=== PATIENT | male | born 1965 | race Caucasian/White ===

== ENCOUNTER 2018-11-21 04:13 | Observation (INO) | payer OTHER ==
[2018-11-21 04:44] LABS: ADD MAN DIFF? NO
[2018-11-21 04:45] LABS: WHITE BLOOD COUNT 5.4 10^3/ul (4.8-10.8)
[2018-11-21 04:45] LABS: BASOPHILS % 0.4 % (0.0-2.0); EOSINOPHILS # 0.1 10^3/ul (0.0-0.5); HEMATOCRIT 42.3 % (42.0-52.0); HEMOGLOBIN 14.2 g/dl (14.0-18.0); LYMPHOCYTES # 2.3 10^3/ul (0.8-2.9); LYMPHOCYTES % 43.2 % (15.0-51.0); MEAN CORPUSCULAR HEMOGLOBIN 29.2 pg (29.0-33.0); MEAN CORPUSCULAR HGB CONC 33.6 g/dl (32.0-37.0); MEAN CORPUSCULAR VOLUME 86.9 fl (82.0-101.0); MEAN PLATELET VOLUME 9.7 fl (7.4-10.4); MONOCYTE # 0.5 10^3/ul (0.3-0.9); MONOCYTES % 8.3 % (0.0-11.0); NEUTROPHIL # 2.5 10^3/ul (1.6-7.5); NEUTROPHILS % 45.7 % (39.0-77.0); PLATELET COUNT 181 10^3/UL (140-415); RED BLOOD COUNT 4.87 10^6/ul (4.70-6.10); RED CELL DISTRIBUTION WIDTH 12.6 % (11.5-14.5)
[2018-11-21 05:02] LABS: ANION GAP 7 (5-13); BLOOD UREA NITROGEN 10 mg/dl (7-20); CALCIUM 9.5 mg/dl (8.4-10.2); CARBON DIOXIDE 28 mmol/L (21-31); CHLORIDE 103 mmol/L (97-110); CREATININE 0.91 mg/dl (0.61-1.24); Estimated GFR > 60 mL/min (>60); GLUCOSE 123 mg/dl (70-220); POTASSIUM 3.9 mmol/L (3.5-5.1); SODIUM 138 mmol/L (135-144)
[2018-11-21 05:13] LABS: TROPONIN-I < 0.012 ng/ml (0.000-0.120)
[2018-11-21] MEDS ORDERED: NACL 0.9% 3 ML SYG IV (06:30)
[2018-11-21] MEDS ORDERED: ACETAMINOPHEN 325 MG TAB PO (06:30)
[2018-11-21] MEDS ORDERED: ONDANSETRON 4 MG INJ IV (06:30)
[2018-11-21] MEDS ORDERED: NITROGLYCERIN (SL) 0.4 MG TAB SL (06:30)
[2018-11-21] MEDS ORDERED: ALBUTEROL/IPRATROPIUM (NEB) 3 ML AMP HHN (06:30)
[2018-11-21 10:09] LABS: CREATINE KINASE 65 IU/L (23-200)
[2018-11-21 10:21] LABS: CK INDEX 0.9; CK-MB 0.58 ng/ml (0.0-2.4); TROPONIN-I < 0.012 ng/ml (0.000-0.120)
[2018-11-21] MEDS: ASPIRIN 81 MG TAB PO (10:25)
[2018-11-21] MEDS: METOPROLOL 25 MG TAB PO (10:26)
[2018-11-21] MEDS: ENOXAPARIN 40 MG/0.4 ML SYG SC (10:53)
[2018-11-21] MEDS: METOPROLOL 50 MG TAB PO (11:17)
[2018-11-21] MEDS: SOD CHLORIDE 0.9% 100 ML (14:28)
[2018-11-21] MEDS: IOHEXOL 100 ML (14:28)
[2018-11-21 15:23] LABS: CREATINE KINASE 52 IU/L (23-200)
[2018-11-21 15:35] LABS: CK INDEX 0.6; TROPONIN-I < 0.012 ng/ml (0.000-0.120)
[2018-11-21] MEDS: LORAZEPAM 2 MG INJ IV (17:18)
[2018-11-21] MEDS: LOSARTAN 50 MG TAB PO (20:45)
[2018-11-21] MEDS: ATORVASTATIN 40 MG TAB PO (20:45)
[2018-11-21] MEDS ORDERED: ATORVASTATIN 20 MG TAB PO (21:00)
[2018-11-22 06:52] LABS: ADD MAN DIFF? NO
[2018-11-22 07:04] LABS: WHITE BLOOD COUNT 6.3 10^3/ul (4.8-10.8)
[2018-11-22 07:04] LABS: BASOPHILS % 0.5 % (0.0-2.0); EOSINOPHILS # 0.2 10^3/ul (0.0-0.5); EOSINOPHILS % 2.7 % (0.0-7.0); HEMATOCRIT 44.6 % (42.0-52.0); HEMOGLOBIN 14.9 g/dl (14.0-18.0); LYMPHOCYTES # 1.7 10^3/ul (0.8-2.9); LYMPHOCYTES % 27.8 % (15.0-51.0); MEAN CORPUSCULAR HEMOGLOBIN 29.2 pg (29.0-33.0); MEAN CORPUSCULAR HGB CONC 33.4 g/dl (32.0-37.0); MEAN CORPUSCULAR VOLUME 87.3 fl (82.0-101.0); MEAN PLATELET VOLUME 9.8 fl (7.4-10.4); MONOCYTE # 0.5 10^3/ul (0.3-0.9); MONOCYTES % 7.5 % (0.0-11.0); NEUTROPHIL # 3.8 10^3/ul (1.6-7.5); NEUTROPHILS % 61.3 % (39.0-77.0); PLATELET COUNT 175 10^3/UL (140-415); RED BLOOD COUNT 5.11 10^6/ul (4.70-6.10); RED CELL DISTRIBUTION WIDTH 12.6 % (11.5-14.5)
[2018-11-22 07:14] LABS: ALANINE AMINOTRANSFERASE 42 IU/L (13-69); ALBUMIN 4.3 g/dl (3.3-4.9); ALBUMIN/GLOBULIN RATIO 1.53; ALKALINE PHOSPHATASE 47 IU/L (42-121); ANION GAP 9 (5-13); ASPARTATE AMINO TRANSFERASE 26 IU/L (15-46); BILIRUBIN,INDIRECT 1.3 mg/dl (0-1.1); BILIRUBIN,TOTAL 1.3 mg/dl (0.2-1.3); BLOOD UREA NITROGEN 12 mg/dl (7-20); CALCIUM 9.7 mg/dl (8.4-10.2); CARBON DIOXIDE 26 mmol/L (21-31); CHLORIDE 104 mmol/L (97-110); CHOL/HDL RATIO 4.4 RATIO; CHOLESTEROL 116 mg/dl (100-200); CREATININE 1.01 mg/dl (0.61-1.24); Estimated GFR > 60 mL/min (>60); GLUCOSE 105 mg/dl (70-220); HDL CHOLESTEROL 26 mg/dl (28-71); LDL CHOLESTEROL,CALCULATED 52 mg/dl; MAGNESIUM 1.9 mg/dl (1.7-2.5); SODIUM 139 mmol/L (135-144); TOTAL PROTEIN 7.1 g/dl (6.1-8.1); TRIGLYCERIDES 189 mg/dl (0-149)
[2018-11-22 07:15] LABS: POTASSIUM 4.1 mmol/L (3.5-5.1)
[2018-11-22] MEDS: ASPIRIN 81 MG TAB PO (08:03)
[2018-11-22 08:05] LABS: HEMOGLOBIN A1C 5.2 % (0-5.9)
[2018-11-22] MEDS: ENOXAPARIN 40 MG/0.4 ML SYG SC (08:06)
== END 2018-11-22 11:38 | disposition home or self-care (01) ==
LOC: E/R 04:13 → TEL 05:17
DX: R07.9 Chest pain, unspecified (principal); I25.10 Atherosclerotic heart disease of native coronary artery without angina pectoris; Z95.5 Presence of coronary angioplasty implant and graft; I10 Essential (primary) hypertension; E78.5 Hyperlipidemia, unspecified; R20.0 Anesthesia of skin
CPT/HCPCS: 36415; 70551; 71045; 75574; 80048; 80053; 80061; 82550; 82553; 83036; 83735; 84443; 84484; 85025; 93005; 93306; 99285-25; G0378